=== PATIENT | male | born 1950 | race Caucasian/White ===

== ENCOUNTER 2016-07-31 07:22 | Observation (INO) ==
[2016-07-31] MEDS ORDERED: Neosporin OINT 15 GM TUBE TP ONE (07:32)
--- NOTE | 2016-07-31 07:42 | Emergency Department Note ---
Disposition Clinical Impression: Epistaxis Disposition: Admitted As Inpatient Condition: Good Instructions: Epistaxis (ED) Reasons to Return/Additional Instructions: Return for worsening symptoms or return of bleeding. Referrals: Gurjit Pickard Jr, MD [Primary Care Provider] - Venita Maier DO [Non-Partnered Physician] - Forms: ED Satisfaction Letter Time of Disposition: 08:20 Epistaxis HPI - General Chief complaint: ED Epistaxis Stated complaint: NOSEBLEED Time Seen by Provider: 07/31/16 07:27 Source: patient Mode of arrival: ambulatory Limitations: no limitations Nursing Notes Reviewed: Yes Vital Signs Reviewed: Yes - History of Present Illness HPI Narrative: 65-year-old who comes in who is on Coumadin who developed a left nares nosebleed just prior to arrival. Patient is on Coumadin for history of atrial fibrillation. He is not had his Coumadin checked for about a month. Pt Subjective Complaint: epistaxis Location: left nostril Onset (ago): Just [employer] Duration: constant Context: warfarin use Treatment prior to arrival: nose pinching - Related Data Home Medications Medication Instructions Recorded Confirmed Aspirin 81 mg PO DAILY 07/31/16 07/31/16 Metoprolol Succinate 100 mg PO DAILY 07/31/16 07/31/16 Simvastatin [Zocor] 40 mg PO HS 07/31/16 07/31/16 Warfarin [Coumadin] 5 - 10 mg PO DAILY 07/31/16 07/31/16 Allergies Allergy/AdvReac Type Severity Reaction Status Date / Time No Known Allergies Allergy Verified 07/31/16 08:45 Constitutional: Denies: fever, chills, weakness, weight change Eyes: Denies: eye pain, eye discharge, vision change ENT ED: Reports: epistaxis. Denies: ear pain, throat pain, dental pain, hearing loss, congestion, dysphagia Cardiovascular: Denies: chest pain, palpitations, dyspnea on exertion, edema, syncope Respiratory: Denies: cough, dyspnea, wheezes, hemoptysis, stridor Gastrointestinal: Denies: abdominal pain, nausea, vomiting, diarrhea, constipation, hematemesis, melena, hematochezia Genitourinary: Denies: urgency, dysuria, frequency, hematuria Musculoskeletal: Denies: back pain, neck pain, arthralgia, myalgia Integumentary: Denies: rash, abrasion, lesions Neurological: Denies: headache, weakness, numbness, paresthesias, confusion, abnormal gait, vertigo Psychiatric: Denies: anxiety, depression, suicidal thoughts, homicidal thoughts , auditory hallucinations, visual hallucinations Endocrine: Denies: fatigue Hematological/Lymphatic: Denies: easy bleeding, easy bruising Allergic/Immunologic: Denies: facial swelling, urticaria Physical Exam - General Limitations: no limitations General appearance: alert, in no apparent distress - Head Head exam: atraumatic, normocephalic, normal inspection - Eye Eye exam: Present: normal appearance, PERRL, EOMI - ENT ENT exam: other (Bleeding from the left nares.) - Neck Neck exam: Present: normal inspection, full ROM, trachea midline - Chest Chest inspection: Present: normal inspection, symmetric chest wall rise - Respiratory Respiratory exam: Present: normal lung sounds bilaterally - Cardiovascular Cardiovascular exam: Present: regular rate, normal rhythm, normal heart sounds - Abdominal Exam Abdominal exam: Present: soft, Non-Tender. Absent: tenderness, distention, guarding, rebound, rigidity - Extremities Exam Extremities exam: Present: normal inspection, full ROM. Absent: tenderness, pedal edema - Expanded Lower Extremity Exam Neurovascular/Tendon exam: Absent: motor deficit, sensory deficit, tendon deficit Gait: not tested/not observed - Back Exam Back exam: Present: normal inspection, full ROM. Absent: tenderness - Neurological Exam Neurological exam: Present: alert, oriented X3 - Psychiatric Psychiatric exam: Present: normal affect, normal mood - Skin Skin exam: Present: warm, dry, intact, normal color Course - Reevaluation(s) Reevaluation #1: I reviewed lab work with the patient his hemoglobin is 17.3 his INR is 1.7. The patient was repacked with an 18 inch three-inch petroleum gauze but continued to have bleeding. Consultation was obtained with Dr. Maier who will come down and evaluate the patient. Time: 08:16 Reevaluation #2: The patient left the ER and when he got into the car his nose started bleeding again so he comes back in. 1 mL additional saline was placed in the balloon. Time: 09:28 - Consultations Consultation #1: Discussed with Dr. Maier, admitted to the hospital she will consult. Time: 07:51 Consultation #2: Discussed with Dr. Maier who will evaluate the patient. Time: 08:19 Consultation #3: Scuffs with , admit. Time: 08:25 Vital Signs Temperature 97.7 F 07/31/16 07:23 Pulse Rate 94 07/31/16 07:23 Respiratory Rate 20 07/31/16 07:23 Blood Pressure 130/86 07/31/16 07:23 O2 Sat by Pulse Oximetry 97 07/31/16 07:23 Temperature 97.4 F L 07/31/16 09:14 Pulse Rate 88 07/31/16 08:19 Respiratory Rate 16 07/31/16 09:14 Blood Pressure 128/74 07/31/16 09:14 O2 Sat by Pulse Oximetry 99 07/31/16 08:19 Oxygen Delivery Oxygen Delivery Room Air Procedures - Epistaxis Control Consent Obtained: verbal consent Time Out Performed: Yes Nostril: left Nose Prepped With: phenylephrine Direct Inspection: unable to visualize Device Inserted: vaseline gauze Patient Tolerated Procedure: well Complications: continued epistaxis (But much improved) Epistaxis - Lab Data Result diagrams: 07/31/16 07:43 07/31/16 07:43 Lab Results 07/31/16 07/31/16 07/31/16 Range/Units 07:43 07:43 07:43 WBC 7.6 (4.3-11.1) K/mcL RBC 5.65 H (4.19-5.50) M/mcL Hgb 17.3 H (12.9-16.9) g/dL Hct 50.4 H (37.5-50.1) % MCV 89.2 (83.0-100.0) fL MCH 30.6 (28.0-33.3) pg MCHC 34.3 (31.6-35.5) g/dL RDW 13.7 (11.5-14.5) % Plt Count 282 (140-400) K/mcL MPV 9.0 L (9.4-12.4) fL Immature Gran % 0.3 (0-4) % Seg Neutrophils % 56.7 % Lymphocytes % 25.2 % Monocytes % 11.1 % Eosinophils % 6.0 % Basophils % 0.7 % Neutrophils # 4.3 (1.6-8.9) K/mcL Lymphocytes # 1.9 (0.6-4.6) K/mcL Monocytes # 0.9 (0.0-1.3) K/mcL Eosinophils # 0.5 (0.0-0.6) K/mcL Basophils # 0.1 (0.0-0.2) K/mcL PT 18.5 H (9.4-12.1) Seconds INR 1.7 APTT 42.8 H (26.0-36.0) Seconds Sodium 140 (136-145) mEq/L Potassium 3.6 (3.5-4.5) mEq/L Chloride 111 H (98-109) mEq/L Carbon Dioxide 20 (19-29) mEq/L BUN 20 (8-26) mg/dL Creatinine 0.92 (0.72-1.25) mg/dL Est GFR ( Amer) > 60 (> 60) Est GFR (Non-Af Amer) > 60 (> 60) BUN/Creatinine Ratio 22 (6-26) Glucose 121 H (70-99) mg/dL Calculated Osmolality 294 (280-300) Calcium 9.3 (8.6-10.8) mg/dL Blood Type Antibody Screen 07/31/16 Range/Units 07:43 WBC (4.3-11.1) K/mcL RBC (4.19-5.50) M/mcL Hgb (12.9-16.9) g/dL Hct (37.5-50.1) % MCV (83.0-100.0) fL MCH (28.0-33.3) pg MCHC (31.6-35.5) g/dL RDW (11.5-14.5) % Plt Count (140-400) K/mcL MPV (9.4-12.4) fL Immature Gran % (0-4) % Seg Neutrophils % % Lymphocytes % % Monocytes % % Eosinophils % % Basophils % % Neutrophils # (1.6-8.9) K/mcL Lymphocytes # (0.6-4.6) K/mcL Monocytes # (0.0-1.3) K/mcL Eosinophils # (0.0-0.6) K/mcL Basophils # (0.0-0.2) K/mcL PT (9.4-12.1) Seconds INR APTT (26.0-36.0) Seconds Sodium (136-145) mEq/L Potassium (3.5-4.5) mEq/L Chloride (98-109) mEq/L Carbon Dioxide (19-29) mEq/L BUN (8-26) mg/dL Creatinine (0.72-1.25) mg/dL Est GFR ( Amer) (> 60) Est GFR (Non-Af Amer) (> 60) BUN/Creatinine Ratio (6-26) Glucose (70-99) mg/dL Calculated Osmolality (280-300) Calcium (8.6-10.8) mg/dL Blood Type A POSITIVE Antibody Screen NEGATIVE
[2016-07-31] MEDS ORDERED: Neosporin OINT 1 APPL PACKET TP ONE (07:49)
[2016-07-31 07:51] LABS: Basophils # 0.1 K/mcL (0.0-0.2); Basophils % 0.7 %; Eosinophils # 0.5 K/mcL (0.0-0.6); Hematocrit 50.4 % (37.5-50.1); Hemoglobin 17.3 g/dL (12.9-16.9); Immature Granulocytes % 0.3 % (0-4); Lymphocytes # 1.9 K/mcL (0.6-4.6); Lymphocytes % 25.2 %; Mean Corpuscular HGB Conc 34.3 g/dL (31.6-35.5); Mean Corpuscular Hemoglobin 30.6 pg (28.0-33.3); Mean Corpuscular Volume 89.2 fL (83.0-100.0); Monocytes # 0.9 K/mcL (0.0-1.3); Monocytes % 11.1 %; Neutrophils # 4.3 K/mcL (1.6-8.9); Platelet Count 282 K/mcL (140-400); Red Blood Count 5.65 M/mcL (4.19-5.50); Red Cell Distribution Width 13.7 % (11.5-14.5); Segmented Neutrophils % 56.7 %
[2016-07-31 07:57] LABS: INR 1.7; Prothrombin Time 18.5 Seconds (9.4-12.1)
[2016-07-31 08:00] LABS: Activated Partial Thrombo Time 42.8 Seconds (26.0-36.0)
[2016-07-31 08:01] LABS: BUN/Creatinine Ratio 22 (6-26); Blood Urea Nitrogen 20 mg/dL (8-26); Calcium 9.3 mg/dL (8.6-10.8); Carbon Dioxide 20 mEq/L (19-29); Chloride 111 mEq/L (98-109); Glucose 121 mg/dL (70-99); Osmolality,Calculated 294 (280-300); Potassium 3.6 mEq/L (3.5-4.5); Sodium 140 mEq/L (136-145); eGFR For African Americans > 60 (> 60); eGFR For Non-African Americans > 60 (> 60)
[2016-07-31] MEDS ORDERED: Naloxone 0.4 MG/ML INJ IVP PRN (08:34)
--- NOTE | 2016-07-31 10:16 | Internal Med History&Physical ---
Date of Encounter: 07/31/16 Time of Encounter: 10:13 Assessment and Plan (1) Epistaxis Current visit: Yes Status: Acute started today, packing done at ED. ENT following, will follow recommendation monitor for bleeding. will trend h/h, hold coumadin for now, cause unknown at this time, INR is subtherapeutic. (2) Atrial fibrillation Current visit: Yes Status: Acute continue BB> not in RVR> will hold coumadin for now due to epistaxis. Qualifiers: Atrial fibrillation type: unspecified Qualified Code(s): I48.91 - Unspecified atrial fibrillation Internal Medicine - H&P: HPI Chief complaint: nose bleed Admitted From: Home Plans for Post Hospital Care: Home History of present illness: Mr. Pfeiffer is a 65 year old male with PMH of HTN, ATrial fib on coumadin preseneted to ED after having nose bleed. he says it started as soon as he woke up, did not pick his nose, no trama, he describes it as spontaneous. denies bleeding from other sites, check INR at ED which was 1.7, ENT Was consulted and did packing at ED. planned for DC but came back from his car as he started bleeding again. Hb is stable, denies prior bleeding history. Past Med Surg Social Fam HX - Past Medical History Medical history: coronary artery disease, CVA, hyperlipidemia, hypertension, other Psychiatric history: no psych history - Social History Smoking Status: Current every day smoker Smokeless Tobacco Status: No Alcohol use: none Drug use: none Internal Medicine - H&P: Meds Aspirin 81 mg PO DAILY 07/31/16 [History] Metoprolol Succinate 100 mg PO DAILY 07/31/16 [History] Simvastatin [Zocor] 40 mg PO HS 07/31/16 [History] Warfarin [Coumadin] 5 - 10 mg PO DAILY 07/31/16 [History] Allergies No Known Allergies Allergy (Verified 07/31/16 08:45) All Systems PM: A 10-system review of systems was performed and is negative for pertinent findings except as documented above in the HPI. - Constitutional Constitutional: no chills, no fever(s), no night sweats - EENT Eyes: no change in vision, no discharge, no pain, no photophobia Ears: no ear discharge, no ear pain, no tinnitus Nose, mouth and throat: epistaxis - Cardiovascular Cardiovascular ROS IM: no chest pain, no diaphoresis, no dyspnea, no lightheadedness, no palpitations, no syncope - Respiratory Respiratory: no cough, no dyspnea, no wheezing, no excessive phlegm production - Gastrointestinal Gastrointestinal: no abdominal pain, no diarrhea, no hematemesis, no hematochezia, no melena, no nausea, no vomiting - Musculoskeletal Musculoskeletal ROS IM: no numbness, no tingling - Constitutional Vitals: Temp Pulse Resp BP Pulse Ox 97.4 F L 88 16 128/74 99 07/31/16 09:14 07/31/16 08:19 07/31/16 09:14 07/31/16 09:14 07/31/16 08:19 General appearance: Present: mild distress, A&O X 3 Exam: neck- supple bleeding from left nostril, posterior packing in place chest- b/l clear, no added sounds CVS-s1 and s2, no mr//g abd-soft, non tender, bs are present ext- no edema Internal Med - H&P Results - Labs CBC & Chem 7: 07/31/16 07:43 07/31/16 07:43
[2016-07-31] MEDS ORDERED: *HR* HYDROcodone/Acet 7.5/325 mg TABLET PO PRN (11:06)
[2016-07-31] MEDS ORDERED: *HR* HYDROmorphone 2 MG/ML SYRINGE IVP PRN (11:08)
[2016-07-31] MEDS ORDERED: Ondansetron 4 MG/2 ML VIAL ONE (11:29)
[2016-07-31] MEDS ORDERED: Ondansetron 4 MG/2 ML VIAL IVP PRN (11:34)
[2016-07-31] MEDS: 0.9 % Sodium Chloride 1,000 ML IVC SCH ×2 (11:44→21:58)
[2016-07-31] MEDS: Oxymetazoline Nasal SPRAY BOTTLE NS SCH ×2 (11:45→17:35)
[2016-07-31] MEDS: Metoprolol XL (24 HR) Succ 50 MG TAB.ER.24H PO SCH (11:45)
--- NOTE | 2016-07-31 15:55 | ENT - Procedure Note ---
Date of procedure: 07/31/16 Pre-op diagnosis: Posterior epistaxis Post-op diagnosis: same Procedure: Patient previously packed with a anterior rapid Rhino balloon was 5.5 cm. Patient had significant hemorrhage posteriorly and anteriorly around previously placed balloon balloon and decision was made to do we fail the balloon and hold this balloon to repack the nose. Due to patient's significant hemorrhage from the left naris, 9 cm rapid rhino anterior and posterior balloon was placed within the left nares. This was placed posteriorly to fill the entire inferior portion of the nasal cavity. Once in place this was filled with 3 mL of saline in the posterior balloon and 5 mL of saline in the anterior balloon. Patient continued to copiously hemorrhage from the left nares posteriorly as well as anteriorly. Another 3 mL of saline was placed in the posterior balloon and a total of 7 mL of saline was added to the anterior balloon. Mustache dressing was then placed. Nasal mustache dressing was placed. At this point hemostasis was obtained. Patient was rechecked after adequate time had passed. There was no bleeding from the anterior naris bilaterally. Oropharynx was clear without any bloody ooze or bloody drainage. Patient tolerated this procedure well. ICD 28514 Control nasal hemorrhage, posterior subsequent, with posterior nasal packs. Implants: 9 cm anterior/posterior rapid Rhino balloon Anesthesia: none Estimated blood loss (cc): 100 Condition: stable
--- NOTE | 2016-07-31 15:59 | ENT - Consult Note ---
Date of Encounter: 08/01/16 Time of Encounter: 10:25 Assessment and Plan (1) Acute posterior epistaxis Current Visit: Yes Status: Resolved Patient required posterior packing in the left naris with anterior posterior pack. Patient currently stable with this pack in place. Patient with a coagulopathy on blood work is known to be on Coumadin. We will leave balloon in place as he is currently able for at least 72 hours before removal of balloon. If patient has not had any significant bleeding after 72 hours will plan on removing the balloon. If patient continues to do well without any problems patient may be discharged and follow up for balloon removal in the office. (2) Anticoagulated on Coumadin Current Visit: Yes Status: Chronic Recommend holding at the current time History of Present Illness Consult date: 07/31/16 Reason for ENT Consult: epistaxis History of present illness: 65-year-old gentleman that presented the ER secondary to significant epistaxis. Patient began bleeding suddenly from the left near. Patient was coughing up blood as well as having blood poured from the front of the nose. Patient is on Coumadin and baby aspirin. Patient denies any previous nasal trauma or any previous bleeding. Attempt was made by ER physician to pack the nose which was unsuccessful. ENT was counseled for evaluation treatment for hemostasis of significant nasal hemorrhage from the nose. Past Med Surg Social Fam HX - Past Medical History Medical history: coronary artery disease, CVA, hyperlipidemia, hypertension, other Psychiatric history: no psych history - Social History Smoking Status: Current every day smoker Smokeless Tobacco Status: No Alcohol use: none Drug use: none - Family History Mother Living Status: Hx Family Cardiac Disorders: Yes Father Living Status: Cause of : Liver cancer Hx Family Cancer: Yes Medications and Allergies Aspirin 81 mg PO DAILY 07/31/16 [History] Metoprolol Succinate 100 mg PO DAILY 07/31/16 [History] Simvastatin [Zocor] 40 mg PO HS 07/31/16 [History] Cephalexin [Keflex] 500 mg PO BID #14 capsule 08/01/16 [Rx] HYDROcodone/Acet 7.5/325 mg [[place] 7.5-325 mg] 1 tab PO Q6H PRN #10 tablet 08/01 [Rx] Allergies No Known Allergies Allergy (Verified 07/31/16 08:45) ENT Exam Initial Vital Signs Temp Pulse Resp BP Pulse Ox 97.7 F 94 20 130/86 97 07/31/16 07:23 07/31/16 07:23 07/31/16 07:23 07/31/16 07:23 07/31/16 07:23 - General physical appearance well developed, well nourished, severe distress - Eyes PERRL, normal ocular movement - ENT Other (Copious blood from the left naris and down the posterior oropharynx bright red in nature) - Neck no masses, trachea midline - Respiratory normal expansion, normal respiratory effort Exam Initial Vital Signs Temp Pulse Resp BP Pulse Ox 97.7 F 94 20 130/86 97 07/31/16 07:23 07/31/16 07:23 07/31/16 07:23 07/31/16 07:23 07/31/16 07:23 Results - Labs 08/01/16 03:58 08/01/16 03:58 Abnormal lab results RBC 5.65 M/mcL (4.19-5.50) H 07/31/16 07:43 Hgb 17.3 g/dL (12.9-16.9) H 07/31/16 07:43 Hct 50.4 % (37.5-50.1) H 07/31/16 07:43 MPV 9.0 fL (9.4-12.4) L 07/31/16 07:43 PT 18.5 Seconds (9.4-12.1) H 07/31/16 07:43 APTT 42.8 Seconds (26.0-36.0) H 07/31/16 07:43 Chloride 111 mEq/L (98-109) H 07/31/16 07:43 Glucose 121 mg/dL (70-99) H 07/31/16 07:43 All other labs normal. Consult Discharge Plan - Plan Instructions: Atrial Fibrillation (DC), Epistaxis (DC), Chronic Hypertension ( DC) Additional Instructions: Follow-up with primary care provider within one week, follow-up with ENT in 2 days Referrals: Gurjit Pickard Jr, MD [Primary Care Provider] - 08/06/16 3:00 pm Venita Maier DO [Non-Partnered Physician] - 08/04/16 9:00 am (Please come to the Emergency Room Thursday August 04, 2016 at 9:00am, you do not have to check in just tell them to page Dr. Pereira. Thank you!) Prescriptions: Cephalexin [Keflex] 500 mg PO BID #14 capsule HYDROcodone/Acet 7.5/325 mg [[place] 7.5-325 mg] 1 tab PO Q6H PRN #10 tablet PRN Reason: Pain
[2016-07-31 18:14] LABS: Hematocrit 44.7 % (37.5-50.1)
[2016-08-01 05:11] LABS: Basophils % 0.2 %; Eosinophils # 0.1 K/mcL (0.0-0.6); Eosinophils % 0.3 %; Hematocrit 39.6 % (37.5-50.1); Immature Granulocytes % 0.6 % (0-4); Lymphocytes # 1.9 K/mcL (0.6-4.6); Mean Corpuscular HGB Conc 33.3 g/dL (31.6-35.5); Mean Corpuscular Hemoglobin 30.1 pg (28.0-33.3); Mean Corpuscular Volume 90.4 fL (83.0-100.0); Mean Platelet Volume 9.5 fL (9.4-12.4); Monocytes # 1.7 K/mcL (0.0-1.3); Neutrophils # 13.5 K/mcL (1.6-8.9); Platelet Count 303 K/mcL (140-400); Red Blood Count 4.38 M/mcL (4.19-5.50); Red Cell Distribution Width 13.6 % (11.5-14.5); Segmented Neutrophils % 77.9 %
[2016-08-01 05:13] LABS: Hemoglobin 13.2 g/dL (12.9-16.9)
[2016-08-01 05:29] LABS: BUN/Creatinine Ratio 36 (6-26); Carbon Dioxide 23 mEq/L (19-29); Chloride 111 mEq/L (98-109); Glucose 119 mg/dL (70-99); Osmolality,Calculated 300 (280-300); Potassium 3.9 mEq/L (3.5-4.5); Sodium 141 mEq/L (136-145); eGFR For African Americans > 60 (> 60); eGFR For Non-African Americans > 60 (> 60)
[2016-08-01 05:30] LABS: Blood Urea Nitrogen 31 mg/dL (8-26); Calcium 7.9 mg/dL (8.6-10.8)
[2016-08-01] MEDS: Oxymetazoline Nasal SPRAY BOTTLE NS SCH (05:41)
[2016-08-01] MEDS: 0.9 % Sodium Chloride 1,000 ML IVC SCH (08:13)
[2016-08-01] MEDS: Metoprolol XL (24 HR) Succ 50 MG TAB.ER.24H PO SCH (08:13)
--- NOTE | 2016-08-01 09:48 | Discharge Summary ---
Date of Encounter: 08/01/16 Time of Encounter: 09:15 - Discharge Diagnosis (1) Acute posterior epistaxis Priority: Primary Status: Resolved Comments: Hemostasis achieved per ENT and balloon placement. He remained hemodynamically stable and did not require blood transfusion. Follow-up with ENT in 2 days outpatient for balloon removal (2) Epistaxis Priority: Primary Status: Resolved (3) Hypertension Priority: Secondary Status: Chronic Comments: Controlled with his home medication, follow-up outpatient (4) Anticoagulated on Coumadin Priority: Secondary Status: Chronic (5) Leukocytosis Priority: Primary Status: Acute Comments: Likely secondary to stress, no signs of infection (6) Atrial fibrillation Priority: Secondary Status: Chronic Comments: Slightly tachycardic prior to discharge however rate controlled otherwise. Anticoagulated with Coumadin, follow-up outpatient Qualifiers: Atrial fibrillation type: unspecified Qualified Code(s): I48.91 - Unspecified atrial fibrillation - Discharge Medications Home Medications: Aspirin 81 mg PO DAILY 07/31/16 [History] Metoprolol Succinate 100 mg PO DAILY 07/31/16 [History] Simvastatin [Zocor] 40 mg PO HS 07/31/16 [History] Warfarin [Coumadin] 5 - 10 mg PO DAILY 07/31/16 [History] Allergies/Adverse Reactions: Allergies No Known Allergies Allergy (Verified 07/31/16 08:45) Date of admission: 07/31/16 09:35 Primary care physician: Gurjit Pickard Jr, MD Consults: 07/31/16 07:52 Consult to ENT [CONS] Stat Consulting Provider: HEATHER Snow Reason for Consult: Epistaxis on Coumadin Time Notified: 07:53 Call Completed: Yes Discharging clinician: Gregoria Bird Anticipated date of discharge: 08/01/16 - Patient Status Disposition: Home, Self-Care Condition: Good Functional capacity at discharge: independent ambulation Overall status at discharge: patient is back to baseline - Discharge Instructions Follow Up With: Gurjit Pickard Jr, MD [Primary Care Provider] - Venita Maier DO [Non-Partnered Physician] - Additional Instructions: Follow-up with primary care provider within one week, follow-up with ENT in 2 days - Diet and Activity Activity: increase activity as tolerated Diet: low fat, low cholesterol, low salt diet Hospital course: Mr. Pfeiffer is a 65 year old male with past medical history of hypertension, atrial fibrillation on Coumadin. Patient presented to emergency department chief complaint nosebleed. He states that when he woke up, his nose started to spontaneously bleed. Active bleeding noted upon presentation and ENT was brought on board in the emergency department who packed his nose and initially stopped bleeding however just prior to being discharged, he started to bleed again so he was admitted to the hospitalist service for further evaluation and management. ENT remained on board during this admission and packed his nose again and this time achieved hemostasis. He was observed overnight and remained without active bleeding. He also remained hemodynamically stable and did not require blood transfusions. His vital signs remained stable and he was able to tolerate a regular diet prior to discharge. Mild leukocytosis noted however suspect stress related, no signs of active infection. It does not appear as if this was related to his Coumadin given that he has been on this for more many years and was subtherapeutic with an INR of 1.7. He states he is on had one nosebleed prior to this that was many years ago and stopped after 5 minutes on its own. He will follow up with ENT 2 days after discharge for balloon removal. He was discharged home in stable condition with close outpatient follow-up recommended. - Time Spent with Patient Total time spent providing and/or coordinating discharge services: - Constitutional Vitals: Temp Pulse Resp BP Pulse Ox 98.4 F 95 16 155/82 95 08/01/16 08:06 08/01/16 08:06 08/01/16 08:06 08/01/16 08:06 08/01/16 08:06 General appearance: Present: A&O X 3, pleasant, no acute distress, answers questions appropriately - Head Head exam: Present: atraumatic, normocephalic - Eye Eye exam: Present: PERRL, conjuntiva pink, sclera anicteric Pupils: Present: PERRL - Neck Neck exam general surgery: Present: supple, trachea midline. Absent: lymphadenopathy - Respiratory Respiratory exam: Present: CTAB. Absent: accessory muscle use, rales, respiratory distress, rhonchi, wheezes - Cardiovascular Cardiovascular exam: Present: RRR, +S1, +S2. Absent: diastolic murmur, gallop, rubs, systolic murmur - GI/Abdominal GI/Abdominal exam: Present: normal bowel sounds, soft, no peritoneal signs. Absent: distended, tenderness - Extremities Exam Extremities exam: Present: warm, radial pulses palpable and symetrical. Absent : calf tenderness, cyanotic, pedal edema - Neurological Exam Neurological exam: Present: alert, CN II-XII intact, normal gait, oriented X3, no focal deficits, strengths equal and symetr throughout. Absent: pronater drift, facial droop, speech deficit - Skin Skin exam: Present: dry, intact, normal color, warm
[2016-08-01 11:37] VITALS: BP 135/78
--- NOTE | 2016-08-01 12:55 | ENT - Progress Note ---
Date of Encounter: 08/01/16 Time of Encounter: 11:10 - Assessment and Plan (1) Acute posterior epistaxis Current Visit: Yes Status: Resolved Patient has remained hemostatic after placement of a 9 cm anterior posterior rapid Rhino balloon in the left naris. Patient is maintaining oxygen saturations and has not had any significant bleeding. Patient's blood pressures remained stable as well. Patient deemed appropriate for discharge home with the balloon in place. Would recommend placement on antibiotics as well as by mouth pain medicine. I discussed balloon removal by Dr. Zambrano at some point this weekend. My offices hoping to schedule removal in the emergency department on Saturday morning by Dr. Zambrano. Discussed stopping Coumadin at the current point in time and discussed care and limitations well balloon is in place. (2) Anticoagulated on Coumadin Current Visit: Yes Status: Chronic Recommend holding at the current time Subjective Patient reports: feels better Narrative: Patient seen and examined. Rapid Rhino in place in the left naris. Patient denies any bleeding. Nasal mustache dressing placed yesterday after packing the nose remains dry. Patient with some feeling of lightheadedness or wobbliness. Patient denies any dizziness or spinning. Pain well controlled by mouth pain medicine. Objective Initial Vital Signs Temp Pulse Resp BP Pulse Ox 97.7 F 94 20 130/86 97 07/31/16 07:23 07/31/16 07:23 07/31/16 07:23 07/31/16 07:23 07/31/16 07:23 - General physical appearance well developed, well nourished - Eyes PERRL, normal ocular movement - ENT Other (Rapid Rhino in place in the left naris, mustache dressing in place and dry, oropharynx without any drainage no active bleeding.) - Labs 08/01/16 03:58 08/01/16 03:58 Diabetes panel 08/01/16 Range/Units 03:58 Sodium 141 (136-145) mEq/L Potassium 3.9 (3.5-4.5) mEq/L Chloride 111 H (98-109) mEq/L Carbon Dioxide 23 (19-29) mEq/L BUN 31 H D (8-26) mg/dL Creatinine 0.85 (0.72-1.25) mg/dL Glucose 119 H (70-99) mg/dL Calcium 7.9 L D (8.6-10.8) mg/dL Calcium panel 08/01/16 Range/Units 03:58 Calcium 7.9 L D (8.6-10.8) mg/dL Pituitary panel 08/01/16 Range/Units 03:58 Sodium 141 (136-145) mEq/L Potassium 3.9 (3.5-4.5) mEq/L Chloride 111 H (98-109) mEq/L Carbon Dioxide 23 (19-29) mEq/L BUN 31 H D (8-26) mg/dL Creatinine 0.85 (0.72-1.25) mg/dL Glucose 119 H (70-99) mg/dL Calcium 7.9 L D (8.6-10.8) mg/dL Adrenal panel 08/01/16 Range/Units 03:58 Sodium 141 (136-145) mEq/L Potassium 3.9 (3.5-4.5) mEq/L Chloride 111 H (98-109) mEq/L Carbon Dioxide 23 (19-29) mEq/L BUN 31 H D (8-26) mg/dL Creatinine 0.85 (0.72-1.25) mg/dL Glucose 119 H (70-99) mg/dL Calcium 7.9 L D (8.6-10.8) mg/dL Consult Discharge Plan - Plan Instructions: Atrial Fibrillation (DC), Epistaxis (DC), Chronic Hypertension ( DC) Additional Instructions: Follow-up with primary care provider within one week, follow-up with ENT in 2 days Referrals: Gurjit Pickard Jr, MD [Primary Care Provider] - 08/06/16 3:00 pm Venita Maier DO [Non-Partnered Physician] - 08/04/16 9:00 am (Please come to the Emergency Room Thursday August 04, 2016 at 9:00am, you do not have to check in just tell them to page Dr. Pereira. Thank you!) Prescriptions: Cephalexin [Keflex] 500 mg PO BID #14 capsule HYDROcodone/Acet 7.5/325 mg [[place] 7.5-325 mg] 1 tab PO Q6H PRN #10 tablet PRN Reason: Pain
== END 2016-08-01 12:45 | disposition home or self-care (01) ==
LOC: 3BNU 07:22 → EMEROO 07:22 → 3BNU 09:48
PROVIDERS: ADMIT Internal Medicine Endocrinology, Diabetes & Metabolism; ATTEND Nurse Practitioner Family